=== PATIENT | female | born 2000 | race Caucasian/White ===

== ENCOUNTER 2023-09-06 02:28 | Emergency (ER) | payer OTHER ==
[~2023-09-06] VITALS: Ht 162.6 cm; Wt 81.8 kg
[~2023-09-06 02:28] MED LIST: ZOFRAN ODT4 MG PO
[2023-09-06 02:31] VITALS: TEMP 98.6
[2023-09-06] MEDS ORDERED: Morphine 4 MG/ML VIAL IV ONE (03:00)
[2023-09-06] MEDS ORDERED: NS 1,000 ML IV ONE (03:00)
[2023-09-06] MEDS ORDERED: Ondansetron 4 MG/2 ML VIAL IV ONE (03:00)
[2023-09-06 03:01] LABS: BASO # 0.1 K/mm3 (0.0-0.2); BASO % 0.7 % (0.0-2.0); EOS # 0.2 K/mm3 (0.0-0.7); EOS % 2.2 % (0.0-4.0); GRAN # 3.7 K/mm3 (1.4-6.5); HEMATOCRIT 44.2 % (37.0-47.0); HEMOGLOBIN 15.4 g/dl (12.5-16.0); LYMPH # 2.8 K/mm3 (1.2-3.4); LYMPH % 38.9 % (20.0-51.0); MEAN CELL VOLUME 82 fl (80.0-100.0); MEAN CORPUSCULAR HEMOGLOBIN 29 pg (27-31); MEAN CORPUSCULAR HGB CONC 35 g/dl (33.0-37.0); MEAN PLATELET VOLUME 10.7 fl (7.4-10.4); MONO # 0.6 K/mm3 (0.1-0.6); MONO % 8.1 % (1.7-9.3); PLATELET COUNT 245 K/mm3 (130-400); RED BLOOD COUNT 5.37 M/mm3 (4.10-5.30); REDCELL DISTRIBUTION WIDTH-CV 12.3 % (11.5-14.5)
[2023-09-06 03:15] LABS: ALBUMIN 3.9 gm/dL (3.5-5.0); BILIRUBIN,TOTAL 0.7 mg/dL (0.2-1.2); CALCIUM 9.1 mg/dL (8.4-10.2); CREATININE, serum 0.81 mg/dL (0.57-1.11); POTASSIUM 4.2 mmol/L (3.5-4.5); TOTAL PROTEIN 7.9 gm/dL (6.2-8.1)
[2023-09-06] MEDS ORDERED: Iohexol 300 - 100 ML VIAL IV ONE (03:33)
[2023-09-06] MEDS ORDERED: NS 60 ML IV ONE (03:34)
[2023-09-06 04:45] VITALS: BP 114/71; PULSE 87
[2023-09-06 04:45] LABS: COLLECTION METHOD CLEAN CATCH
[2023-09-06 04:58] LABS: PH 5.5 (5.0-8.5); URINE APPEARANCE Hazy (CLEAR/HAZY); URINE BLOOD Negative (NEGATIVE); URINE COLOR Yellow (YELLOW); URINE GLUCOSE Negative (NEGATIVE); URINE KETONE Negative (NEGATIVE); URINE NITRATE Negative (NEGATIVE); URINE PROTEIN(semi-quant) Negative (NEGATIVE); URINE UROBILINOGEN 0.2 E.U/dL (0.2-1.0)
[2023-09-06 04:59] LABS: MUCOUS Present (NOT PRESENT); URINE BACTERIA Many /hpf (NONE SEEN)
== END 2023-09-06 04:45 | disposition home or self-care (01) ==
LOC: COL.ER 02:28
PROVIDERS: Emergency Medicine
DX: R10.31 Right lower quadrant pain (principal); R10.33 Periumbilical pain; R11.0 Nausea; R19.7 Diarrhea, unspecified; F17.290 Nicotine dependence, other tobacco product, uncomplicated; Z79.3 Long term (current) use of hormonal contraceptives
CPT/HCPCS: J2270; J2405; J7030; Q9967

== ENCOUNTER 2024-02-25 11:03 | Outpatient (CLI) | payer OTHER ==
[~2024-02-25] VITALS: Ht 162.6 cm; Wt 82.9 kg
[2024-02-25] MEDS ORDERED: NIKKI 3 MG-0.01 EACH PO (11:21)
[2024-02-25] MEDS ORDERED: GALZIN25 MG PO (11:22)
[2024-02-25] MEDS ORDERED: NS Flush 10 ML SYRINGE PRN ICA (11:30)
[2024-02-25 11:50] VITALS: BP 142/88; PULSE 88; TEMP 98.6
[2024-02-25 15:00] VITALS: BP 133/95; PULSE 74
--- NOTE | 2024-02-25 15:09 | NUR ---
Ramila is transferred back to express unit rm [address] after tilt table test. Dr[address] Montero did speak with pt after procedure while in supervisor laboratory. Report and handoff of care to Kathleen HERNDON. Discharge pending.
--- NOTE | 2024-02-25 15:49 | NUR ---
PT TOLERATED RECOVERY PERIOD WELL. VS REMAINED WITHIN NORMAL LIMITS. PT FREE FROM ACUTE CONCERNS AND COMPLAINTS. IV DISCONTINUED. PT ASSISTED TO MAIN LOBBY. PT VERBALIZED UNDERSTANDING OF DISCHARGE INSTRUCTIONS.
[2024-02-25] MEDS ORDERED: NS Flush 10 ML SYRINGE BID ICA SCH (21:00)
== END 2024-02-25 15:54 | disposition home or self-care (01) ==
LOC: COL.CAR 11:03
DX: R42 Dizziness and giddiness (principal); R00.0 Tachycardia, unspecified; R00.2 Palpitations; R07.9 Chest pain, unspecified; R06.02 Shortness of breath; F17.290 Nicotine dependence, other tobacco product, uncomplicated; F17.210 Nicotine dependence, cigarettes, uncomplicated